=== PATIENT | female | born 1975 | race Caucasian/White ===

== ENCOUNTER 2023-07-13 11:49 | Emergency (ER) | payer OTHER, SELFPAY ==
--- NOTE | 2023-07-13 11:51 | XRR_ITS ---
PROCEDURE INFORMATION: Exam: XR Chest Exam date and time: 07/13/2023 2:05 PM Age: 48 years old Clinical indication: Pain; Chest pressure; Prior surgery; Surgery date: 6+ months; Surgery type: Pacemaker 2022; Additional info: Cp TECHNIQUE: Imaging protocol: Radiologic exam of the chest. Views: 1 view. COMPARISON: No relevant prior studies available. FINDINGS: Tubes, catheters and devices: Single lead AICD with left chest generator. Lungs: Unremarkable. No consolidation. Pleural spaces: Unremarkable. No pleural effusion. No pneumothorax. Heart/Mediastinum: Unremarkable. No cardiomegaly. Bones/joints: Degenerative changes along the spine and left acromioclavicular joint. XR/XR chest 1V portable [id number] IMPRESSION: No acute findings.
--- NOTE | 2023-07-13 11:51 | ECG_ITS ---
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 Measurements Intervals [place] Rate: 81 P: 26 NV: 140 QRS: 18 QRSD: 88 T: 63 QT: 358 QTc: 418 Interpretive Statements SINUS RHYTHM No previous ECG available for comparison Electronically Signed On 07-14-2023 8:33:27 CDT by Eileen Lucero M.D. [email or web address] hospitalSemiSouth Laboratoriesuc [facility].[employer]/store/NU/[id number] f
[2023-07-13 12:13] VITALS: BMI 45.8
[2023-07-13 12:16] VITALS: BP 196/83; PULSE 77; RESP 18; TEMP 36.7; O2SAT 98
[2023-07-13 12:33] LABS: Basophils % 0.3 %; Eosinophils # 0.2 10^3/uL (0.0-0.8); Lymphocytes # 2.4 10^3/uL (0.8-4.8); Lymphocytes % 27.3 %; Mean Corpuscular HGB Conc 31.7 g/dL (30-55); Mean Corpuscular Hemoglobin 25.7 pg (27-33); Mean Platelet Volume 11.6 fL (7.4-10.4); Monocytes # 0.7 10^3/uL (0.2-0.9); Monocytes % 7.5 %; Neutrophils # 5.42 10^3/uL (1.8-7.7); Neutrophils % 62.3 %; Nucleated Red Blood Cells % 0 %; Platelet Count 156 10^3/cmm (157-399); Red Blood Count 5.06 10^6/uL (3.85-5.65); Red Cell Distribution Width 15.8 % (12.1-15.1); White Blood Count 8.69 10^3/uL (3.29-11.43)
[2023-07-13 12:46] LABS: INR 0.95 (0.8-1.2)
[2023-07-13 12:50] LABS: Alanine Aminotransferase 21 U/L (0-33); Albumin Level 3.6 g/dL (3.5-5.2); Alkaline Phosphatase 90 U/L (35-105); Anion Gap 15.1 (5-19); Aspartate Amino Transferase 22 U/L (0-32); Blood Urea Nitrogen 14 mg/dL (6-20); Calcium 9.8 mg/dL (8.5-10.5); Carbon Dioxide 26 mmol/L (22-29); Chloride 101 mmol/L (98-107); Creatinine Clr Calc Pharmacy 133.1189; Globulin 3.4 g/dL (1.3-4.6); Glomerular Filtration Rate 77.2 mL/min (90-130); Glucose 233 mg/dL (65-115); Lipase 35 U/L (13-60); Osmolality Calculated 294 mOsm/kg (285-295); Potassium 4.1 mmol/L (3.5-5.1); Sodium 138 mmol/L (136-145); Total Bilirubin 0.3 mg/dL (0.15-1.2)
[2023-07-13 12:52] LABS: Troponin(5th) Baseline 17 ng/L (0-10)
--- NOTE | 2023-07-13 13:34 | ED_ITS ---
HPI - Chest Pain 2 General: Chief Complaint: Chest Pain Stated Complaint: chest pain Time Seen by Provider: 07/13/23 13:33 History of Present Illness: 48-year-old female comes in today with s ome chest discomfort. Patient is recently moved to the area from [place]. Patient has a history of diabetes mellitus, cardiovascular event x 1 year, pacemaker insertion, and hypertension. Patient gallbladder has been removed and had a in . Patient is morbidly obese. Patient's fianc? is at bedside. Review of patient medications she is on multiple medications for blood pressure including Entresto, metoprolol, furosemide, and spironolactone. Patient also is on medications for diabetes appears to be metformin and Jardiance. Review of Systems 2 General: Reports: 10 or more systems reviewed and unremarkable except in HPI and below Card: Reports: chest pain Physical Exam 2 Const: COMMON NORMALS: alert HENMT: COMMON NORMALS: normocephalic HEAD & SCALP: normocephalic Neck/C-Spine: COMMON NORMALS: full ROM Chest: COMMONS NORMALS: normal inspection of the chest Resp: COMMON NORMALS: normal respiratory effort and clear to auscultation bilaterally AUSCULTATION: clear to auscultation bilaterally Cardio: COMMON NORMALS: regular rate and regular rhythm RATE: regular rate RHYTHM: regular rhythm GI: COMMON NORMALS: Soft to palpation and non-tender PALPATION: Yes Soft to palpation Back/Pelvis: COMMON NORMALS: thoracic and lumbar spine normal to inspection Extremity: COMMON NORMALS: no pedal edema Neuro: SENSORIUM/ORIENTATION: Yes alert Skin: COMMON NORMALS: turgor normal GENERAL SKIN EXAM: turgor normal Course 2 Vital Signs: Vital signs: Vital Signs Temperature 98.0 F 07/13/23 12:16 Pulse Rate 83 07/13/23 14:31 Respiratory Rate 18 07/13/23 12:16 Blood Pressure 137/104 07/13/23 14:31 Pulse Oximetry 93 07/13/23 14:31 Oxygen Delivery Me thod Room Air 07/13/23 14:31 MDM - Chest Pain Medical Decision Making 48-year-old female comes in today with some chest discomfort starting 3 days ago. Patient appears nontoxic. Patient has a strong family history for heart disease with both parents dying from heart attacks. Patient did have a cardiac event x 1 year ago but they have believe might have been a heart attack and she had a pacemaker inserted at that time. Respirations are even. Lungs are clear to auscultation. No edema is noted in the extremities. Vital signs are normal except for high blood pressure. Differential diagnosis includes but not limited to Hypertension, ACS, CHF, GERD. 1500, patient reassessed. Patient reports pain has resolved since receiving clonidine and blood pressure coming down. CBC CMP were unremarkable. Patient's troponin was unchanged at 2 hours. BNP was 911. Chest x-ray showed small effusion. Patient was given a IM injection of furosemide 40 mg. Patient will continue with routine medicines at home. We will give clonidine 0.1 to use as needed for high blood pressure greater than 160/100. Patient reports understanding of care plan and need for follow-up or return to the ER. Case management was requested to help patient follow-up with a primary care locally. Lab Data 07/13/23 12:14 07/13/23 12:14 Radiology Impressions Chest X-Ray 07/13/23 11:51 IMPRESSION: No acute findings. Laboratory Results WBC 8.69 10^3/uL (3.29-11.43) 07/13/23 12:14 RBC 5.06 10^6/uL (3.85-5.65) 07/13/23 12:14 Hgb 13.00 g/dL (11.27-16.99) 07/13/23 12:14 Hct 41.0 % (36-47) 07/13/23 12:14 MCV 81.0 fl (85-98) L 07/13/23 12:14 MCH 25.7 pg (27-33) L 07/13/23 12:14 MCHC 31.7 g/dL (30-55) 07/13/23 12:14 RDW 15.8 % (12.1-15.1) H 07/13/23 12:14 Plt Count 156 10^3/cmm (157-399) L 07/13/23 12:14 MPV 11.6 fL (7.4-10.4) H 07/13/23 12:14 Neut % (Auto) 62.3 % 07/13/23 12:14 Lymph % (Auto) 27.3 % 07/13/23 12:14 Wilkes % (Auto) 7.5 % 07/13/23 12:14 Eos % (Auto) 2.0 % 07/13/23 12:14 Baso % (Auto) 0.3 % 07/13/23 12:14 Neut # (Auto) 5.42 10^3/uL (1.8-7.7) 07/13/23 12:14 Lymph # (Auto) 2.4 10^3/uL (0.8-4.8) 07/13/23 12:14 Wilkes # (Auto) 0.7 10^3/uL (0.2-0.9) 07/13/23 12:14 Eos # (Auto) 0.2 10^3/uL (0.0-0.8) 07/13/23 12:14 Baso # (Auto) 0.0 10^3/uL (0.0-0.1) 07/13/23 12:14 Nucleated RBC % (auto) 0 % 07/13/23 12:14 Nucleated RBCs # 0.0 /100WBC 07/13/23 12:14 PT 12.90 SECONDS (12.1-14.9) 07/13/23 12:14 INR 0.95 (0.8-1.2) 07/13/23 12:14 Sodium 138 mmol/L (136-145) 07/13/23 12:14 Potassium 4.1 mmol/L (3.5-5.1) 07/13/23 12:14 Chloride 101 mmol/L (98-107) 07/13/23 12:14 Carbon Dioxide 26 mmol/L (22-29) 07/13/23 12:14 Anion Gap 15.1 (5-19) 07/13/23 12:14 BUN 14 mg/dL (6-20) 07/13/23 12:14 Creatinine 0.8 mg/dL (0.5-0.9) 07/13/23 12:14 GFR Calculation 77.2 mL/min (90-130) L 07/13/23 12:14 Glucose 233 mg/dL (65-115) H 07/13/23 12:14 Calculated Osmolality 294 mOsm/kg (285-295) 07/13/23 12:14 Calcium 9.8 mg/dL (8.5-10.5) 07/13/23 12:14 Total Bilirubin 0.3 mg/dL (0.15-1.2) 07/13/23 12:14 AST 22 U/L (0-32) 07/13/23 12:14 ALT 21 U/L (0-33) 07/13/23 12:14 Alkaline Phosphatase 90 U/L (35-105) 07/13/23 12:14 Troponin T Baseline 17 ng/L (0-10) H 07/13/23 12:14 Troponin T 120 Minute 16.46 ng/L (0-10) H 07/13/23 14:13 Delta Troponin T -0.54 ABS# (0-10) L 07/13/23 14:13 NT-Pro-B Natriuret Pep 911 pg/mL (0-125) H 07/13/23 14:13 Total Protein 7.0 g/dL (6.6-8.7) 07/13/23 12:14 Albumin 3.6 g/dL (3.5-5.2) 07/13/23 12:14 Globulin 3.4 g/dL (1.3-4.6) 07/13/23 12:14 Lipase 35 U/L (13-60) 07/13/23 12:14 All radiology interpretation(s) finalized by discharge EKG Data EKG 1: EKG interpretation date: 07/13/23 EKG interpretation time: 14:42 Prior EKG tracings: available for review Interpretation: EKG shows a sinus rhythm with a regular rate at [address] elevation or other ectopy is noted. No changes were noted from prior exam done earlier this morning. Discharge Plan Discharge Patient Disposition: Home Clinical Impression: Hypertension Qualifiers: Hypertension type: unspecified Qualified Code(s): I10 - Essential (primary) hypertension CHF exacerbation Qualifiers: Heart failure type: unspecified Qualified Code(s): I50.9 - Heart failure, unspecified Condition: Stable Prescriptions: New clonidine HCl 0.1 mg tablet 0.1 mg PO Q8H PRN (Reason: hypertensive emergency) Qty: 30 0RF Discharge Orders: Discharge ED (Routine); Ordered 07/13/23 Ordered By: Pancho Ruiz Discharge Diet: Usual diet Discharge Activity: Increase activity as tolerated Activity Restrictions/Additional Instructions: Home and rest. Use clonidine as needed for blood pressures greater than 160/100. Follow-up with primary care. Return to ED for worsening symptoms such as increasing chest pain and increasing shortness of breath. Coding Level of Care Code ED Applications Consultant for Remington Ridley
--- NOTE | 2023-07-13 13:51 | ECG_ITS ---
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 Measurements Intervals [place] Rate: 78 P: 29 TN: 147 QRS: 23 QRSD: 90 T: 57 QT: 372 QTc: 424 Interpretive Statements SINUS RHYTHM Compared to ECG 07/13/2023 11:53:16 No significant changes Electronically Signed On 07-14-2023 8:38:14 CDT by Eileen Lucero M.D. https://[email or web address] Advertisingmagee general hospitalarcplan Information Services AGfisher-[facility][x+1]/store/OM/[id number]
[2023-07-13 14:05] VITALS: BP 185/114
[2023-07-13] MEDS: cloNIDine 0.1 mg Tablet 0.200000000000000011 MG PO (14:05)
[2023-07-13 14:31] VITALS: BP 137/104; PULSE 83; O2SAT 93
[2023-07-13 14:36] LABS: Troponin 5 2HR 16.46 ng/L (0-10)
[2023-07-13 14:45] LABS: NT Pro B Type Natriuretic Pept 911 pg/mL (0-125)
[2023-07-13 14:49] LABS: Troponin 5 2HR Delta -0.54 ABS# (0-10)
[2023-07-13] MEDS: FUROsemide 10 mg/mL SDV 4mL 40 MG IM (15:56)
--- NOTE | 2023-07-14 10:50 | DCPLANNER ---
messaged [facility] to establish pcp
== END 2023-07-13 16:24 | disposition home or self-care (01) ==
PROVIDERS: Emergency Medicine; Emergency Provider Nurse Practitioner Family
DX: I11.0 Hypertensive heart disease with heart failure (principal); I50.9 Heart failure, unspecified
CPT/HCPCS: 36415; 71045; 80053; 83690; 83880; 84484; 85025; 85610; 93005; 96372; 99285; J1940